=== PATIENT | female | born 1960 | race Hispanic/Latino ===

== ENCOUNTER 2021-04-10 09:24 | Outpatient (CLI) | payer OTHER ==
[2021-04-10 11:12] LABS: #Eosinphils 0.1 10x3/uL (0.0-0.5); #Monocytes 0.4 10x3/uL (0.0-1.1); #Neutrophils 3.1 10x3/uL (1.5-8.4); %Basophils 0.2 % (0.0-2.0); %Eosinophils 1.2 % (0.0-6.0); %Lymphocytes 28.7 % (18.0-47.0); %Monocytes 7.6 % (0.0-10.0); %Neutrophils 62.1 % (40.0-75.0); Hemoglobin 12.7 g/dL (12.0-15.5); Mean Corpuscular HGB CONC 32.4 g/dL (32.0-36.0); Mean Corpuscular Hemoglobin 30.4 pg (27.0-33.0); Mean Corpuscular Volume 93.8 fl (81.6-98.3); Mean Platelet Volume 9.9 fl (7.4-10.4); Platelet Count 229 10x3/uL (150-450); Red Blood Cell (RBC) Count 4.18 10x6/uL (3.90-5.03)
[2021-04-10 17:27] LABS: SARS-CoV-2 PCR by NAA Not Detected (NotDetected)
== END 2021-04-10 09:25 | disposition home or self-care (01) ==
LOC: LABBT 09:24
PROVIDERS: ATTEND Orthopaedic Surgery Hand Surgery
DX: Z01.818 Encounter for other preprocedural examination (principal); M65.4 Radial styloid tenosynovitis [de Quervain]; Z20.822 Contact with and (suspected) exposure to COVID-19
CPT/HCPCS: 85025; 93005; 93010; U0003; U0005

== ENCOUNTER 2021-04-14 11:38 | Day surgery (SDC) | payer OTHER ==
[2021-04-11 11:06] VITALS: BMI 20.9
[2021-04-14] MEDS ORDERED: ceFAZolin 2 GM/DEX 5% 100 ML BAG ONE (12:16)
[2021-04-14] MEDS ORDERED: Fentanyl 100 MCG/2 ML VIAL ONE (12:52)
[2021-04-14] MEDS ORDERED: Bupivacaine PF 0.5% 30 ML VIAL ONE (13:13)
[2021-04-14] MEDS ORDERED: Betamet Acet/Betamet Na Ph 30 MG/5 ML VIAL ONE (13:13)
[2021-04-14] MEDS ORDERED: Bacitracin Zinc Ointment 30 gm TUBE ONE (13:13)
[2021-04-14] MEDS ORDERED: Neomycin-Polymyxin 1 ML AMP ONE ×2 (13:13→14:53)
[2021-04-14] MEDS ORDERED: Lidocaine 2% Jelly 5 ML TUBE ONE (13:33)
[2021-04-14] MEDS ORDERED: Thrombin 5000 UNITS/5 ML VIAL ONE (14:53)
[2021-04-14] MEDS ORDERED: Lidocaine 1% PF 5 ML VIAL ONE (15:24)
[2021-04-14] MEDS ORDERED: Ondansetron PF 4 MG/2 ML Vial ONE (15:24)
[2021-04-14] MEDS ORDERED: Dexamethasone 20 MG/5 ML VIAL ONE (15:24)
[2021-04-14] MEDS ORDERED: diphenhydrAMINE 50 MG/ML VIAL ONE (15:24)
[2021-04-14] MEDS ORDERED: PROPOFOL 200 MG/20 ML VIAL ONE (15:24)
[2021-04-14] MEDS ORDERED: Ketorolac Tromethamine 30 MG/ML VIAL ONE (15:24)
[2021-04-14] MEDS ORDERED: ePHEDrine 50 MG/ML VIAL ONE (15:24)
== END 2021-04-14 18:48 | disposition home or self-care (01) ==
LOC: SDC 11:38
PROVIDERS: ATTEND Orthopaedic Surgery Hand Surgery
PROC: 0LN50ZZ Release Right Lower Arm and Wrist Tendon, Open Approach (ICD-10-PCS; principal; 2021-04-14)
DX: M65.4 Radial styloid tenosynovitis [de Quervain] (principal); M77.11 Lateral epicondylitis, right elbow; Z87.891 Personal history of nicotine dependence; Z88.4 Allergy status to anesthetic agent
CPT/HCPCS: J0702; J1100; J1200; J1885; J2405; J2704; J3010; J3490; S0020

== ENCOUNTER 2021-06-03 05:20 | Observation (INO) | payer OTHER ==
[2021-06-03] MEDS ORDERED: Morphine 4 MG/ML VIAL ONE (06:39)
[2021-06-03] MEDS ORDERED: Ondansetron PF 4 MG/2 ML Vial ONE (06:39)
[2021-06-03] MEDS ORDERED: Fentanyl 100 MCG/2 ML VIAL ONE (06:45)
[2021-06-03] MEDS ORDERED: Morphine 2 MG/ML VIAL SLOW IVP PRN (08:49)
[2021-06-03] MEDS ORDERED: Promethazine HCl 6.25 MG in Sodium Chloride 0.9% 50 ML IVPB PRN (08:50)
[2021-06-03] MEDS ORDERED: Morphine 4 MG/ML VIAL SLOW IVP PRN (08:57)
[2021-06-03] MEDS: Enoxaparin Sodium 40 MG/0.4 ML SYRINGE SC SCH (09:38)
[2021-06-03 09:50] VITALS: BMI 19.8
[2021-06-03 10:39] LABS: Bilirubin Negative (Negative); Blood, Urine 2+ (Negative); Clarity Turbid (Clear); Glucose, Urine (Dipstick) Normal (Negative); Ketone, Urine Negative (Negative); Leukocyte 500 Leu/uL (Negative); Nitrite Negative (Negative); Protein, Urine (Dipstick) 30 mg/dL (Neg-Trace); RBC/HPF 21-50 HPF (0-3); Urobilinogen Normal mg/dL (Less than 2); WBC/HPF Greater than 50 HPF (0-3); pH, Urine 6.5 (5.0-9.0)
[2021-06-03 10:40] LABS: Specific Gravity, Urine 1.055 (1.002-1.036)
[2021-06-03] MEDS ORDERED: Fentanyl 100 MCG/2 ML VIAL SLOW IVP PRN (10:50)
[2021-06-03 11:07] LABS: Bacteria/HPF 1+ HPF (None Seen); Squamous Epithelial 0-3 HPF (0-3); Urine Culture Reflex Yes Yes
[2021-06-03] MEDS ORDERED: CEFAZOLIN 1 GM in Sodium Chloride 0.9% 100 ML IVPB SCH (14:00)
[2021-06-03] MEDS ORDERED: ceFAZolin 1 GM/D5W 1 GM in Premix Bag 1 BAG IVPB SCH (14:00)
[2021-06-03] MEDS ORDERED: FLU VACC QS2021-22(6MOS UP)/PF 60 MCG/0.5 ML SYRINGE IM ONE (18:00)
[2021-06-03] MEDS: ceFAZolin 1 GM/D5W 1 GM in Premix Bag 1 BAG IVPB SCH (18:09)
[2021-06-04] MEDS: ceFAZolin 1 GM/D5W 1 GM in Premix Bag 1 BAG IVPB SCH (01:42)
[2021-06-04 06:47] LABS: #Eosinphils 0.2 thou/uL (0.0-0.7); #Lymphocytes 1.1 thou/uL (1.20-3.40); #Monocytes 0.4 thou/uL (0.11-0.59); #Neutrophils 3.9 thou/uL (1.40-6.50); %Basophils 0.5 % (0.0-1.0); %Eosinophils 3.1 % (0.0-10.0); %Lymphocytes 19.3 % (21.0-51.0); %Monocytes 7.9 % (0.0-10.0); %Neutrophils 69.3 % (42.0-75.0); Hemoglobin 12.6 g/dL (12.0-16.0); Mean Corpuscular HGB CONC 33.2 g/dL (32.0-36.0); Mean Corpuscular Volume 96.3 fL (78.0-98.0); Mean Platelet Volume 7.2 fL (7.4-10.4); Platelet Count 193 thou/uL (130-400); RBC Distribution Width 11.1 % (11.5-14.5); Red Blood Cell (RBC) Count 3.94 mill/uL (4.20-5.40); White Blood Cell (WBC) Count 5.6 thou/uL (4.8-10.8)
[2021-06-04 07:08] LABS: Anion Gap 10 mmol/L (10-20); BUN (Urea Nitrogen) 13 mg/dL (9.8-20.1); Calc. Creatinine Clearance 63 mL/min (70-130); Calcium 9.5 mg/dL (7.8-10.44); Carbon Dioxide 29 mmol/L (23-31); Chloride 106 mmol/L (98-107); Glucose 95 mg/dL (80-115); Sodium 141 mmol/L (136-145)
[2021-06-04] MEDS: Enoxaparin Sodium 40 MG/0.4 ML SYRINGE SC SCH (09:02)
[2021-06-04] MEDS ORDERED: CEFAZOLIN 1 GM in Sodium Chloride 0.9% 100 ML IVPB SCH (10:00)
[2021-06-04 12:05] VITALS: BP 122/73; TEMP 98.1
== END 2021-06-04 13:13 | disposition home or self-care (01) ==
LOC: ERS 05:20 → SUATTDRO 05:20 → T4-B 07:48
PROVIDERS: ADMIT Student in an Organized Health Care Education/Training Program; ATTEND Internal Medicine
DX: K56.600 Partial intestinal obstruction, unspecified as to cause (principal); N39.0 Urinary tract infection, site not specified; Z87.891 Personal history of nicotine dependence; Z88.4 Allergy status to anesthetic agent; Z88.5 Allergy status to narcotic agent; Z98.51 Tubal ligation status; Z98.890 Other specified postprocedural states
CPT/HCPCS: 36415; 74250; 80048; 81001; 85025; 87086; 96372; 96374; 96375; 96376; G0378; J0690; J1650; J2270; J2405; J3010; J3490

== ENCOUNTER 2021-11-27 11:57 | Outpatient (CLI) | payer OTHER ==
[2021-11-27 13:01] LABS: Estimated GFR-MDRD - POC Greater than 90
== END 2021-11-27 11:58 | disposition home or self-care (01) ==
LOC: BICMRI 11:57
PROVIDERS: ATTEND Nurse Practitioner
DX: R41.89 Other symptoms and signs involving cognitive functions and awareness (principal)
CPT/HCPCS: 70553; 82565